=== PATIENT | female | born 1990 ===

== ENCOUNTER → 2018-07-16 | Emergency (ER) | payer OTHER ==
[~2018-07-16] VITALS: Ht 152.4 cm; Wt 70.8 kg
[~2018-07-16] MED LIST: AMOXICILLIN500 M1
== END | disposition left against medical advice (07) ==
LOC: ER 11:27
DX: T19.2XXA Foreign body in vulva and vagina, initial encounter (principal); W45.8XXA Other foreign body or object entering through skin, initial encounter; Y93.89 Activity, other specified; Y92.89 Other specified places as the place of occurrence of the external cause; Y99.8 Other external cause status